=== PATIENT | male | born 1965 | race African-American/Black ===

== ENCOUNTER 2017-03-08 07:20 | Inpatient (IN) | payer MEDICARE, OTHER ==
[2017-03-08] VITALS (15 sets, daily range): BP systolic 98–157; BP diastolic 71–103
[~2017-03-08] VITALS: Ht 177.8 cm; Wt 83.9 kg
[~2017-03-08 07:20] MED LIST: AMBIEN10 MG ORAL; BRIMONIDINE TART5 ML BOTH EYES; CATAPRES0.1 MG ORAL; DIPHENHYDRAMINE25 M1 ORAL; FOLIC ACID1 MG ORAL; GERI-LANTA LIQ355 ML PO; KLONOPIN1 MG ORAL; LATANOPROST2.5 ML BOTH EYES; NEPHROVITE1 TAB ORAL; NORCO 5-325 TA1 EAC1 ORAL; PROPRANOLOL HCL20 MG ORAL; PROTONIX20 MG ORAL; RENAGEL800 MG ORAL; RISPERDAL1 MG PO; TRAZODONE HCL50 MG ORAL; TYLENOL EXTRA500 MG ORAL; VITAMIN D31000 UNI1 PO
[2017-03-08] MEDS ORDERED: ABILIFY2 MG ORAL (07:28)
[2017-03-08] MEDS ORDERED: Lidocaine 1% 10mg/ml/Epi 0.005mg/ml 30ml vial INJ ONE ×2 (07:28→08:45)
[2017-03-08] MEDS ORDERED: CATAPRES0.1 MG ORAL (07:28)
[2017-03-08] MEDS ORDERED: BENZTROPINE MESY2 MG ORAL (07:28)
[2017-03-08] MEDS ORDERED: Surgicel 4in x 8in TOPIC ONE ×3 (07:29→08:15)
[2017-03-08 08:19] LABS: BASOPHILS % (AUTO) 1.3 % (0.0-2.0); EOSINOPHILS % (AUTO) 2.5 % (0.0-3.0); LYMPHOCYTES % (AUTO) 33.1 % (20.0-45.0); MEAN CORPUSCULAR HEMOGLOBIN 30.9 PG (27.0-31.0); MEAN CORPUSCULAR HGB CONC 32.6 G/DL (32.0-36.0); MEAN CORPUSCULAR VOLUME 95 FL (80-99); MEAN PLATELET VOLUME 6.6 FL (6.5-10.1); MONOCYTES % (AUTO) 9.9 % (1.0-10.0); NEUTROPHILS % (AUTO) 53.3 % (45.0-75.0); PLATELET COUNT 186 K/UL (150-450); RED BLOOD COUNT 4.56 M/UL (4.70-6.10); RED CELL DISTRIBUTION WIDTH 15.7 % (11.6-14.8); WHITE BLOOD COUNT 6.8 K/UL (4.8-10.8)
[2017-03-08 08:28] LABS: INR 1.1 (0.9-1.1); PROTHROMBIN TIME 10.8 SEC (9.30-11.50)
[2017-03-08] MEDS ORDERED: Tranexamic Acid 1,000 MG in NS 110 ML IVPB ONE (08:30)
[2017-03-08 08:32] LABS: CALCIUM 9.8 mg/dL (8.6-10.2); CREATININE 8.9 mg/dL (0.7-1.2); GLOMERULAR FILTRATION RATE 7.6 mL/min (>60); TOTAL PROTEIN 8.6 g/dL (6.6-8.7)
--- NOTE | 2017-03-08 09:08 | Emergency Room Report ---
History of Present Illness General Chief Complaint: General Complaint Source: Patient, EMS Present Illness HPI 51YOM BIBEMS from SNF with bleeding right sided AV fistula SNF says 50cc blood loss. Patient denies chest pain, SOB, dizziness. Feels well otherwise. Completed HD yesterday Bandage changed today, had bleeding when changed, spurting arterial bleed Pressure dressing applied Not on ASA, other AC Per EMR, been here 4x previously but not active bleeding noted at time. Allergies: Coded Allergies: MEPERIDINE (Verified Adverse Reaction, Intermediate, 03/03/14) Patient History Past Medical History: HTN, renal disease Past Surgical History: other - AV fistula Pertinent Family History: none Social History: Denies: smoking, alcohol use, drug use Immunizations: UTD Reviewed Nursing Documentation: PMH: Agreed, PSxH: Agreed Nursing Documentation-PMH Hx Hypertension: Yes Hx Pacemaker: No - Glaucoma Hx COPD: Yes Hx Gastrointestinal Problems: Yes - GERD Hx Dialysis: Yes - MWF, FISTULA ON RIGHT ARM Review of Systems All Other Systems: negative except mentioned in HPI Physical Exam Vital Signs Date Time Temp Pulse Resp B/P (MAP) Pulse Ox O2 Delivery O2 Flow Rate FiO2 03/08/17 07:12 90 18 104/68 99 Room Air Procedures Critical Care Time Critical Care Time CC time 45 minutes Right AV fistula hemorrhage CC time includes Cx with vascular surgeon, direct pressure application, multiple reassessments, review of labs, paperwork from [facility], dosing TXA Medical Decision Making Diagnostic Impression: Primary Impression: Hemorrhage of arteriovenous fistula Qualified Codes: T82.838A - Hemorrhage due to vascular prosthetic devices, implants and grafts, initial encounter ER Course VSS. Afebrile. Asymptomatic Arterial bleed difficult to control with just pressure Required local lido with epi for analgesia, surgicel x3 with direct pressure and topical TXA Continued bleeding Consulted patient's vascular surgeon Dr palacios who recommended wrap with AMELIA wrap from elbow-forearm, elevation NPO for surgery Dr Davidson also asked for 2U PRBC to be made available for possible transfusion CBC: normal H&H. Normal platelets and INR. Endorsed to Dr Kuhn for Dr Hauser for ICU admission at 1030am EKG Diagnostic Results Rate: normal Rhythm: NSR ST Segments: no acute changes ASA given to the pt in ED: No Rhythm Strip Diag. Results EP Interpretation: yes Rate: 77 Rhythm: NSR, no PVC's, no ectopy Chest X-Ray Diagnostic Results Chest X-Ray Diagnostic Results : Chest X-Ray Ordered: Yes # of Views/Limited/Complete: 1 View Indication: Other - Pre-op EP Interpretation: Yes Interpretation: no consolidation, no effusion, no pneumothorax, no acute cardiopulmonary disease Impression: No acute disease Interpreting ER Provider: Dr Omari Agarwal mD Last Vital Signs Date Time Temp Pulse Resp B/P (MAP) Pulse Ox O2 Delivery O2 Flow Rate FiO2 03/08/17 08:30 71 19 102/71 100 Room Air Status: improved Disposition: ADMITTED INPATIENT Condition: Critical Referrals: YENIFER VAZQUEZ (PCP) OMARI AGARWAL M.D. Mar 08, 2017 09:08
[2017-03-08] MEDS ORDERED: Isovue-M 300 15ml INJ ONE (10:59)
[2017-03-08] MEDS ORDERED: Thrombin 5000 units TOPIC ONE (10:59)
[2017-03-08] MEDS ORDERED: Lidocaine 1% Plain 30 ml INJ ONE (10:59)
[2017-03-08] MEDS ORDERED: Bupivacaine 0.25% Inj 30ml INJ ONE (11:00)
[2017-03-08] MEDS ORDERED: Bacitracin 50000 Units Vial ONE (11:00)
--- NOTE | 2017-03-08 11:03 | Diagnostic Imaging Report ---
Indication: Cough Comparison: None A single view chest radiograph was obtained. Findings: Cardiomediastinal appearance is within normal limits for age. Pulmonary vascularity is appropriate. The diaphragmatic contour is smooth and costophrenic angles are sharp. No pleural effusions are identified. The bones are unremarkable. Impression: No acute findings
[2017-03-08] MEDS ORDERED: NS 275ml ONE (12:00)
[2017-03-08] MEDS ORDERED: Dexamethasone 4mg/ml vial ONE (12:00)
[2017-03-08] MEDS ORDERED: LR 1000ml ONE (12:00)
[2017-03-08] MEDS ORDERED: Sterile Water Irrig 1000ml IRRIG ONE (12:00)
[2017-03-08] MEDS ORDERED: Alfentanil 2ml Inj ONE (12:00)
--- NOTE | 2017-03-08 12:00 | Pre-Procedure Note/Attestation ---
Pre-Procedure Note/Attestation Complete Prior to Procedure Planned Procedure: right Procedure Narrative: Exploration of right arm av shunt control of bleeding possible ligation revision resection and dialysis catheter placement Indications for Procedure Pre-Operative Diagnosis: Bleeding av shunt ESRD Attestation I attest that I discussed the nature of the procedure; its benefits; risks and complications; and alternatives (and the risks and benefits of such alternatives ), prior to the procedure, with the patient (or the patient's legal fulfillment representative). I attest that, if there was a reasonable possibility of needing a blood transfusion, the patient (or the patient's legal fulfillment representative) was given the [place] Department of Health Services standardized written summary, pursuant to the [place] Blood Safety Act ([place] Health and Safety Code # 1645, as amended). I attest that I re-evaluated the patient just prior to the surgery and that there has been no change in the patient's H&P, except as documented below: GORDY CROOKS Mar 08, 2017 12:00
[2017-03-08] MEDS ORDERED: LR 1000ml 1,000 ML IVLG SCH (12:09)
--- NOTE | 2017-03-08 12:09 | Anethesia Preoperative Eval ---
Anesthesia Pre-op PMH/ROS General Date of Evaluation: Mar 08, 2017 Anesthesiologist: Alcon ASA Score: ASA 3 - Emergency Mallampati Score Class I : Soft palate, uvula, fauces, pillars visible Class II: Soft palate, uvula, fauces visible Class III: Soft palate, base of uvula visible Class IV: Only hard plate visible Mallampati Classification: Class II Surgeon: Elmer Diagnosis: Hemorrage AV Fistula R Arm Surgical Procedure: Revision AV Fistula Anesthesia History: none Family History: no anesthesia problems Allergies: Coded Allergies: MEPERIDINE (Verified Adverse Reaction, Intermediate, 03/03/14) Medications: see eMAR Past Medical History Cardiovascular: Reports: HTN Gastrointestinal/Genitourinary: Reports: ESRD - Dialysis Hematology/Immune: Reports: anemia PSxH Narrative: AV Fistula Anesthesia Pre-op Phys. Exam Physician Exam Last Vital Signs Date Time Temp Pulse Resp B/P (MAP) Pulse Ox O2 Delivery O2 Flow Rate FiO2 03/08/17 11:35 75 16 113/80 100 Room Air 03/08/17 10:30 98.1 Constitutional: NAD Neurologic: CN 2-12 intact Cardiovascular: RRR Respiratory: CTA Gastrointestinal: S/NT/ND Airway Exam Mallampati Score: Class II MO: limited ROM: limited Teeth: missing, intact Anesthesia Pre-op A/P Labs Hematology Test 03/08/17 08:00 White Blood Count 6.8 K/UL (4.8-10.8) Red Blood Count 4.56 M/UL (4.70-6.10) L Hemoglobin 14.1 G/DL (14.2-18.0) L Hematocrit 43.2 % (42.0-52.0) Mean Corpuscular Volume 95 FL (80-99) Mean Corpuscular Hemoglobin 30.9 PG (27.0-31.0) Mean Corpuscular Hemoglobin Concent 32.6 G/DL (32.0-36.0) Red Cell Distribution Width 15.7 % (11.6-14.8) H Platelet Count 186 K/UL (150-450) Mean Platelet Volume 6.6 FL (6.5-10.1) Neutrophils (%) (Auto) 53.3 % (45.0-75.0) Lymphocytes (%) (Auto) 33.1 % (20.0-45.0) Monocytes (%) (Auto) 9.9 % (1.0-10.0) Eosinophils (%) (Auto) 2.5 % (0.0-3.0) Basophils (%) (Auto) 1.3 % (0.0-2.0) Coagulation Test 03/08/17 08:00 Prothrombin Time 10.8 SEC (9.30-11.50) Prothromb Time International Ratio 1.1 (0.9-1.1) Activated Partial Thromboplast Time 28 SEC (23-33) Chemistry Test 03/08/17 08:00 Sodium Level 134 mEQ/L (135-145) L Potassium Level 5.0 mEQ/L (3.4-4.9) H Chloride Level 93 mEQ/L (98-107) L Carbon Dioxide Level 27 mEQ/L (20-30) Anion Gap 14 (5-15) Blood Urea Nitrogen 47 mg/dL (7-23) H Creatinine 8.9 mg/dL (0.7-1.2) H Estimat Glomerular Filtration Rate 7.6 mL/min (>60) Glucose Level 97 mg/dL (74-106) Calcium Level 9.8 mg/dL (8.6-10.2) Total Bilirubin 0.5 mg/dL (0.0-1.2) Aspartate Amino Transf (AST/SGOT) 18 U/L (5-40) Alanine Aminotransferase (ALT/SGPT) 15 U/L (3-41) Alkaline Phosphatase 244 U/L (40-129) H Total Protein 8.6 g/dL (6.6-8.7) Albumin 4.5 g/dL (3.5-5.2) Globulin 4.1 g/dL Albumin/Globulin Ratio 1.0 (1.0-2.7) Risk Assessment & Plan Assessment: ASA 3E Plan: GA, BIS Status Change Before Surgery: No Pre-Antibiotics Dru Gram Ancef IV Given Within 1 Hr of Incision: Yes Alek Rondon MD Mar 08, 2017 12:09
--- NOTE | 2017-03-08 12:11 | Immediate Post-Op Evaluation ---
Immediate Post-Op Evalulation Immediate Post-Op Evalulation Procedure: Revision R AV Fistula Date of Evaluation: Mar 08, 2017 Time of Evaluation: 14:52 IV Fluids: 400 NS Blood Products: 0 Estimated Blood Loss: 100 Urinary Output: 0 Blood Pressure Systolic: 117 Blood Pressure Diastolic: 81 Pulse Rate: 71 Respiratory Rate: 16 O2 Sat by Pulse Oximetry: 100 Temperature (Fahrenheit): 97.5 Pain Score (1-10): 2 Nausea: No Vomiting: No Complications 0 Patient Status: awake, reacts, patent, extubated, none Hydration Status: adequate Dru Gram Ancef IV Given Within 1 Hr of Incision: Yes Time Given: 12:16 Alek Rondon MD Mar 08, 2017 12:11
--- NOTE | 2017-03-08 12:13 | 48 Hour Post Anesthesia Eval ---
Post Anesthesia Evaluation Procedure: Revision R AV Fistula Date of Evaluation: Mar 08, 2017 Time of Evaluation: 17:14 Blood Pressure Systolic: 127 0: 81 Pulse Rate: 74 Respiratory Rate: 18 Temperature (Fahrenheit): 98.2 O2 Sat by Pulse Oximetry: 100 Airway: patent Nausea: No Vomiting: No Pain Intensity: 3 Hydration Status: adequate Cardiopulmonary Status: Stable Mental Status/LOC: patient returned to baseline Follow-up Care/Observations: 0 Post-Anesthesia Complications: 0 Follow-up care needed: N/A Alek Rondon MD Mar 08, 2017 12:13
[2017-03-08] MEDS ORDERED: Norco 5mg/325mg tab ORAL PRN ×2 (12:15→15:00)
[2017-03-08] MEDS ORDERED: Ketorolac 60mg Inj IV PRN (12:15)
[2017-03-08] MEDS ORDERED: Norco 7.5mg/325mg tab ORAL PRN (12:15)
[2017-03-08] MEDS ORDERED: Meperidine 25mg/0.5ml Inj (FOR RIGORS ONLY) IV PRN (12:15)
[2017-03-08] MEDS ORDERED: fentaNYL 100 mcg/2 mL IV PRN (12:15)
[2017-03-08] MEDS ORDERED: LORazepam Inj 2mg/ml 1ml IV PRN (12:15)
[2017-03-08] MEDS ORDERED: Hydromorphone 0.5mg/0.5ml inj IVP PRN (12:15)
[2017-03-08] MEDS ORDERED: Midazolam 2mg/2ml Inj IVP PRN (12:15)
[2017-03-08] MEDS ORDERED: DiphenhydrAMINE 50mg/ml Inj IVP PRN (12:15)
[2017-03-08] MEDS ORDERED: Metoclopramide 10mg/2ml Inj IVP PRN (12:15)
[2017-03-08] MEDS ORDERED: oxyCODONE HCL/Acetaminophen 5/325mg ORAL PRN (12:15)
[2017-03-08] MEDS ORDERED: Atropine Inj 1mg/10ml Syr IV PRN (12:15)
[2017-03-08] MEDS ORDERED: Ketorolac 30mg Inj IV PRN (12:15)
[2017-03-08] MEDS ORDERED: Bacitracin Oint 15gm Tube TOPIC ONE (13:05)
--- NOTE | 2017-03-08 14:41 | Operative Note - PDOC ---
Operative Note Operative Note Pre-op Diagnosis: Bleeding av shunt ESRD Procedure: Exploration of right arm av shunt and ligation with resection of ruptured bleeding av shunt pseudoaneurysm and left IJ chest permcath Post-op Diagnosis: same as pre-op Surgeon: Gordy Crooks Anesthesiologist: Alek Rondon Anesthesia: general Specimen: yes - Right arm av shunt bleeding aneurysm Complications: none Condition: stable Fluids: 400 Estimated Blood Loss: minimal - 100cc Drains: none Implant(s) used?: Yes - Left chest IJ permcath GORDY CROOKS Mar 08, 2017 14:41
[2017-03-08 15:16] LABS: MEAN CORPUSCULAR HEMOGLOBIN 32.7 PG (27.0-31.0); MEAN CORPUSCULAR HGB CONC 34.8 G/DL (32.0-36.0); MEAN CORPUSCULAR VOLUME 94 FL (80-99); MEAN PLATELET VOLUME 8.2 FL (6.5-10.1); PLATELET COUNT 133 K/UL (150-450); RED BLOOD COUNT 3.97 M/UL (4.70-6.10); RED CELL DISTRIBUTION WIDTH 16.1 % (11.6-14.8); WHITE BLOOD COUNT 6.5 K/UL (4.8-10.8)
[2017-03-08 15:17] LABS: BASOPHILS % (AUTO) 0.8 % (0.0-2.0); EOSINOPHILS % (AUTO) 0.6 % (0.0-3.0); LYMPHOCYTES % (AUTO) 9.9 % (20.0-45.0); MONOCYTES % (AUTO) 2.9 % (1.0-10.0); NEUTROPHILS % (AUTO) 85.9 % (45.0-75.0)
[2017-03-08 15:29] LABS: CALCIUM 8.9 mg/dL (8.6-10.2); CREATININE 9.1 mg/dL (0.7-1.2); GLOMERULAR FILTRATION RATE 7.5 mL/min (>60)
[2017-03-08] MEDS ORDERED: Sodium Polystyrene Sulfonate 15gm Powder ORAL ONE (17:00)
[2017-03-08] MEDS ORDERED: ceFAZolin sod 1 GM in NS 55 ML IVPB ONE (18:00)
[2017-03-09] VITALS: BP 138/80
[2017-03-09] MEDS ORDERED: DiphenhydrAMINE 50mg/ml Inj IVP ONE (02:00)
[2017-03-09 04:00] VITALS: BP 143/77
[2017-03-09 05:04] LABS: BASOPHILS % (AUTO) 0.7 % (0.0-2.0); EOSINOPHILS % (AUTO) 0.4 % (0.0-3.0); LYMPHOCYTES % (AUTO) 10.9 % (20.0-45.0); MEAN CORPUSCULAR HEMOGLOBIN 31.6 PG (27.0-31.0); MEAN CORPUSCULAR HGB CONC 33.4 G/DL (32.0-36.0); MEAN CORPUSCULAR VOLUME 95 FL (80-99); MEAN PLATELET VOLUME 7.3 FL (6.5-10.1); PLATELET COUNT 159 K/UL (150-450); RED BLOOD COUNT 3.85 M/UL (4.70-6.10); RED CELL DISTRIBUTION WIDTH 15.8 % (11.6-14.8); WHITE BLOOD COUNT 7.6 K/UL (4.8-10.8)
[2017-03-09 05:44] LABS: CREATININE 10.9 mg/dL (0.7-1.2); GLOMERULAR FILTRATION RATE 6.1 mL/min (>60); POTASSIUM 4.4 mEQ/L (3.4-4.9)
[2017-03-09 08:00] VITALS: BP 121/86
[2017-03-09] MEDS ORDERED: Propranolol 10mg tab ORAL SCH (09:00)
[2017-03-09] MEDS ORDERED: Vitamin D 400 INTLU TAB ORAL SCH (09:00)
[2017-03-09] MEDS ORDERED: Sensipar 30mg Tab ORAL SCH (09:00)
[2017-03-09] MEDS ORDERED: Acetaminophen 500mg (ES) tab ORAL PRN (09:00)
[2017-03-09] MEDS ORDERED: Nephrovite tab (Rena-Vite) ORAL SCH (09:00)
[2017-03-09] MEDS ORDERED: Brimonidine 0.2% Opth Sol BOTH EYES SCH (09:30)
--- NOTE | 2017-03-09 09:30 | History and Physical Report ---
DATE OF ADMISSION: 03/08/2017 CHIEF COMPLAINT: Bleeding from the right AV fistula. HISTORY OF PRESENT ILLNESS: This is a 51-year-old male correction man with a history of ESRD on hemodialysis Friday, Friday, and Friday at [facility], and hypertension. The patient was sent from the correction because of the bleeding from the AV fistula. The patient got dialysis yesterday and since last night the patient has been bleeding from the AV fistula site after removing the dressing, so sent the patient to the ER. In the ER, the patient still had bleeding. The patient did get pressure dressing and with the medications. When I saw the patient in the ER, the patient had spotting of blood from the AV fistula and I discussed with the vascular surgeon who recommends to apply Mik bandage and will see the patient in an hour. The patient denies any headache, dizziness, lightheadedness, chest pain, shortness of breath, nausea, vomiting, or diarrhea. PAST MEDICAL HISTORY: 1. ESRD on hemodialysis Friday, Friday, and Friday at [facility]. 2. Hypertension. PAST SURGICAL HISTORY: Right AV shunt creation. ALLERGIES: Meperidine. MEDICATIONS: [facility] medications reviewed. SOCIAL HISTORY: He resides in a correction. No current smoking, alcohol, and drug use. REVIEW OF SYSTEMS: A 14-point was negative except as in the history of present illness. PHYSICAL EXAMINATION: VITAL SIGNS: Blood pressure 144/95, heart rate 71, respiratory rate 16, and temperature 97.8. Oxygen saturation 100% on room air. GENERAL: The patient is no acute distress. Alert, awake, and oriented x3. HEENT: Atraumatic and normocephalic. NECK: Supple. Trachea is in the midline. LUNGS: Clear to auscultate bilaterally. HEART: S1 and S2, regular rate and rhythm. No murmur. ABDOMEN: Soft and nontender. Bowel sounds are present. EXTREMITIES: No edema. Right AV fistula with spotting of the blood. LABORATORY AND DIAGNOSTIC DATA: White count 6.5, hemoglobin 14.1, hematocrit 43.2, and platelet count 186,000. Chemistry - sodium 134, potassium 5.0, chloride 93, bicarb 27, BUN 47, and creatinine 8.9. Alkaline phosphatase is 144. INR is 1.1. Chest x-ray is normal. ASSESSMENT: 1. Bleeding from the right arteriovenous fistula, most likely aneurysm rupture. 2. End-stage renal disease, on hemodialysis Friday, Friday, and Friday. 3. Hypertension. 4. Mild hyperkalemia. PLAN: 1. Apply Mik bandage. 2. Follow up with Vascular, possible need to take the patient to OR. 3. Monitor H and H and transfuse as needed and monitor vitals. Discussed with the ER attending and vascular. Taylor Jad Kuhn M.D. DR: PRAKASH JOB#: [id number] CC:
--- NOTE | 2017-03-09 11:23 | Diagnostic Imaging Report ---
Indication: Dyspnea Comparison: 03/08/17 A single view chest radiograph was obtained. Findings: Left permacath is in place. The tip is in the right atrium in good position. There is slight kinking at the entry site in the left jugular vein. The lungs are clear. The heart is enlarged. Impression: Permacath placement. The catheter is slightly kinked at the left jugular entry point.
--- NOTE | 2017-03-09 11:33 | Diagnostic Imaging Report ---
Indication: Permacath placement Comparison: None Findings: Single frontal portable view of the chest demonstrating a left jugular permacath appears to be in good position. Impression: Intraoperative imaging
[2017-03-09 12:00] VITALS: BP 131/87
--- NOTE | 2017-03-09 13:07 | Nephrology Progress Note ---
Assessment/Plan Plan 1)Bleeding from the right arteriovenous fistula, s/p resection and ligation of pseudoaneurysm, s/p L chest permacath 2) Hyperkalemia--resolved after kayexalate 3) End-stage renal disease, on hemodialysis Friday, Friday, and Friday. 4). Hypertension. Plan DC to SNF after HD. f/u with vascular for new AV shunt Subjective Subjective got R AV shunt resection and ligation of rupture pseudoaneurysm. pt got L chest permacath. gettign HD Objective Objective Last 24 Hour Vital Signs Date Time Temp Pulse Resp B/P (MAP) Pulse Ox O2 Delivery O2 Flow Rate FiO2 03/09/17 12:00 98.2 70 18 131/87 100 Nasal Cannula 03/09/17 09:16 83 121/86 03/09/17 08:00 88 03/09/17 08:00 97.0 83 18 121/86 98 Nasal Cannula 2.0 03/09/17 04:00 87 03/09/17 04:00 98.0 88 20 143/77 99 Mechanical Ventilator 35 03/09/17 04:00 98.0 88 20 99 Nasal Cannula 2.0 03/09/17 00:00 97.7 83 20 138/80 100 Nasal Cannula 2.0 03/09/17 00:00 80 03/08/17 21:39 71 144/103 03/08/17 20:03 71 144/103 03/08/17 20:00 81 03/08/17 20:00 97.1 80 20 129/87 100 Nasal Cannula 3.0 03/08/17 16:13 97.8 71 15 144/103 100 Nasal Cannula 3.0 03/08/17 15:40 98.0 66 15 152/97 100 Nasal Cannula 3.0 03/08/17 15:38 98.0 03/08/17 15:30 67 21 157/98 100 Nasal Cannula 3.0 03/08/17 15:15 70 21 150/85 100 Nasal Cannula 3.0 03/08/17 15:08 73 19 147/95 100 Simple Mask 8.0 03/08/17 14:50 78 17 115/81 100 Simple Mask 8.0 03/08/17 14:45 77 16 117/80 100 Simple Mask 8.0 03/08/17 14:42 74 18 100 03/08/17 14:41 97.5 85 18 117/81 97 Simple Mask 8.0 03/08/17 14:41 71 16 100 Laboratory Tests 03/08/17 15:10: White Blood Count 6.5, Red Blood Count 3.97L, Hemoglobin 13.0L, Hematocrit 37.3L , Mean Corpuscular Volume 94, Mean Corpuscular Hemoglobin 32.7H, Mean Corpuscular Hemoglobin Concent 34.8, Red Cell Distribution Width 16.1H, Platelet Count 133L, Mean Platelet Volume 8.2, Neutrophils (%) (Auto) 85.9H, Lymphocytes (%) (Auto) 9.9L, Monocytes (%) (Auto) 2.9, Eosinophils (%) (Auto) 0.6, Basophils (%) (Auto) 0.8, Sodium Level 134L, Potassium Level 6.0*H, Chloride Level 96L, Carbon Dioxide Level 23, Anion Gap 15, Blood Urea Nitrogen 50H, Creatinine 9.1H, Estimat Glomerular Filtration Rate 7.5, Glucose Level 96, Calcium Level 8.9 03/08/17 20:05: Potassium Level 4.7 03/09/17 03:35: White Blood Count 7.6, Red Blood Count 3.85L, Hemoglobin 12.2L, Hematocrit 36.4L , Mean Corpuscular Volume 95, Mean Corpuscular Hemoglobin 31.6H, Mean Corpuscular Hemoglobin Concent 33.4, Red Cell Distribution Width 15.8H, Platelet Count 159, Mean Platelet Volume 7.3, Neutrophils (%) (Auto) 80.0H, Lymphocytes (%) (Auto) 10.9L, Monocytes (%) (Auto) 8.0, Eosinophils (%) (Auto) 0.4, Basophils (%) (Auto) 0.7, Sodium Level 139, Potassium Level 4.4, Chloride Level 96L, Carbon Dioxide Level 24, Anion Gap 19H, Blood Urea Nitrogen 68H, Creatinine 10.9H, Estimat Glomerular Filtration Rate 6.1, Glucose Level 123H, Calcium Level 9.0 Height (Feet): 5 Height (Inches): 10.00 Weight (Pounds): 185 Objective NAD, AAox3 CTA b/l,no rales, no rhonchi S1,s2,RRR,no M/R/g soft, non tender, BS+ no edema, BENY shunt resection with dressing, L chest permacath+ CARTERSARA Mar 09, 2017 13:07
[2017-03-09 16:00] VITALS: BP 117/76
[2017-03-09] MEDS ORDERED: NS 275ml ONE (16:50)
[2017-03-09] MEDS ORDERED: Tubing IV Secondary IV ONE (16:50)
--- NOTE | 2017-03-10 07:15 | Operative Note - Dictated ---
DATE OF OPERATION: 03/08/2017 SURGEON: Efren Castillo M.D. ANESTHESIOLOGIST: Alek Rondon M.D. PREOPERATIVE DIAGNOSES: 1. Ruptured bleeding, right arm AV shunt, pseudoaneurysm, and blister. 2. End-stage renal disease, requiring access for hemodialysis. 3. History of hypertension. POSTOPERATIVE DIAGNOSES: 1. Ruptured bleeding, right arm AV shunt, pseudoaneurysm, and blister. 2. End-stage renal disease, requiring access for hemodialysis. 3. History of hypertension. PROCEDURE PERFORMED: 1. Exploration of ruptured right arm AV shunt bleeding aneurysm with ligation of the right upper arm AV shunt. 2. Ligation of right cephalic vein AV fistula and ligation of right proximal axillary vein. 3. Ligation of right cephalic vein AV fistula and resection of two large AV shunt aneurysm and ruptured blistered wound aneurysm. 4. Incision and debridement of right upper arm AV shunt wound down to the muscle. 5. Left internal jugular vein tunneled hemodialysis Perm-catheter (14.5 cm x 27 cm [employer]) with ultrasound sonography with intraoperative fluoroscopy with interpretation and supervision of the above. ANESTHESIA: Local sedation. ANESTHESIOLOGIST: Alek Rondon M.D. COMPLICATIONS: None. TOTAL FLUOROSCOPY TIME: 1 minute and 6 seconds. FINDINGS: 1. Left internal jugular vein tunneled Perm-catheter with the tip in the aortofemoral junction with good curvature. 2. There was a large aneurysmal change of the right cephalic vein AV shunt, lower segment of the AV shunt was ruptured with a large whole defect. These completely were excised. Debridement was performed down to the muscle. The cephalic vein were suture ligated. There was no evidence of proximal resection. The patient had a strong good palpable radial pulse. The patient tolerated the procedure very well and will be dialyzed through the catheter, will be scheduled for a new AV shunt in the right arm in about five weeks' time. INDICATION FOR THE PROCEDURE: This is a 51-year-old male who presented for evaluation and procedure. Risks and benefits were discussed, and consent was obtained. BRIEF HISTORY AND PROCEDURE: The patient was brought to the procedure room. After a dose of antibiotics and sedation by the anesthesiologist, right arm was prepped and draped in usual sterile manner. Chest and neck were prepped and draped in usual sterile manner. There was active bleeding from the ruptured right atrial aneurysm. External pressure proximal cephalic vein AV fistula. This was circumferentially controlled and ligated suture x3. A separate incision was made in the outflow cephalic vein shunt from the shoulder. A separate incision was made in the right cephalic vein fistula, which is also circumferentially controlled and ligated with some suture. These two wounds were irrigated with antibiotic irrigation and closed using 2-0 Vicryl suture and skin stapler. Attention was then turned to the two large aneurysms with ruptured hole, which were excised in an elliptical incision with skin and AV shunt aneurysm. Both of them were excised unblock in an elliptical fashion. Incision and debridement was carried to the right upper arm down to the muscle. Wounds were irrigated with antibiotic irrigation. Hemostasis was achieved. Wounds were reapproximated and closed with interrupted 2-0 and 3-0 Vicryl suture. Skin was closed using skin stapler and reapproximated using interrupted 2-0 nylon suture in a vertical mattress. Sterile dressing applied. Attention was moved to left internal jugular vein. Under sterile condition, left internal jugular vein was . sequential ____ was carried out. sheath was placed. HemoStar Bard and clinically left leg. to the sheath and sheath was peeled away with good curvature and good venous flush. Perm-catheter was flushed with heparinized saline solution, secured using 2-0 nylon suture. The left neck wound was closed with 4-0 Monocryl and . Sterile dressing applied. The patient tolerated the procedure very well. Efren Castillo M.D. DR: Andrés JOB#: [id number] CC:
--- NOTE | 2017-03-10 08:46 | Consultation ---
DATE OF CONSULTATION: 03/08/2017 "NOTE: POOR AUDIO QUALITY" VASCULAR SURGERY CONSULTATION SURGEON: Efren Castillo M.D. REFERRING PHYSICIAN: Taylor Kuhn M.D. REASON FOR CONSULTATION: Active bleeding, right arm AV shunt. 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 The patient has a prior history of blisters, recurrent issues. The patient now presented with ruptured blister and arterial bleeding in the emergency room. Vascular Surgery is again consulted for evaluation. PAST MEDICAL HISTORY: As above, history of AV shunt aneurysm, hypertension, . SOCIAL HISTORY: He is . longterm resident. No history of smoking, drugs, or alcohol abuse. FAMILY HISTORY: Unremarkable. REVIEW OF SYSTEMS: Cardiovascular: No history of chest pain or palpitations. Pulmonary: No cough. No hemoptysis. Gastrointestinal: No history of abdominal pain, constipation, or diarrhea. Genitourinary: No urinary symptoms. Neurological: No history of stroke or seizures. PHYSICAL EXAMINATION: GENERAL: The patient is awake . VITAL SIGNS: Heart rate is 80, blood pressure 140/70, and respirations 16. EXTREMITIES: Right arm AV shunt ruptured pseudoaneurysm with active bleeding, which is controlled by Mik wrap and pressure dressing. LABORATORY DATA: BUN 47, and creatinine 8.9. Hemoglobin is 14.1, WBC 6.5, and platelet count 186,000. IMPRESSION: 1. Ruptured right arm arteriovenous shunt pseudoaneurysm and bleeding. 2. End-stage renal failure, requiring access. PLAN: The patient will require and dissection and dialysis catheter . Efren Castillo M.D. DR: Andrés JOB#: [id number] CC:
--- NOTE | 2017-03-10 19:45 | Cardiology Report ---
APPROVED REPORT EKG Measurement Heart [id number] Normal sinus rhythm Septal infarct, age undetermined T wave abnormality, consider inferolateral ischemia Abnormal ECG
--- NOTE | 2017-03-11 10:18 | Discharge Summary ---
Discharge Summary Hospital Course Date of Admission Mar 08, 2017 at 16:41 Date of Discharge Mar 09, 2017 at 16:51 Admitting Diagnosis bleeding AV FISTULA HPI Venkat Kern Jr is a 51 year old male who was admitted on Mar 08, 2017 at 16: 41 for Av Fistula Hospital Course DC SUMMARY #[id number] Discharge Medications Continued Medications: Acetaminophen* (Tylenol Extra Strength*) 500 Mg Tablet 500 MG ORAL Q6H PRN for Mild Pain/Temp > 100.5, TAB 0 Refills Aripiprazole* (Abilify*) 2 Mg Tablet 1 MG ORAL DAILY, TAB Benztropine Mesylate* (Benztropine Mesylate*) 2 Mg Tablet 2 MG ORAL BEDTIME, TAB Brimonidine Tartrate* (Alphagan*) 5 Ml Drops 1 DROP BOTH EYES BID, ML Cholecalciferol (Vitamin D3) (Vitamin D3) 1,000 Unit Capsule 1000 UNIT PO DAILY, CAP Clonazepam* (Klonopin*) 1 Mg Tablet 1 MG ORAL EVERY 8 HOURS, #15 TAB 0 Refills Clonidine Hcl* (Catapres*) 0.1 Mg Tablet 0.1 MG ORAL EVERY 6 HOURS PRN for For High Blood Pressure, TAB Folic Acid* (Folic Acid*) 1 Mg Tablet 1 MG ORAL DAILY, TAB Hydrocodone Bit/Acetaminophen 5-325* ([place] 5-325 Tablet*) 1 Each Tablet 1 TAB ORAL EVERY 6 HOURS PRN for Pain Scale (3-5), TAB Pantoprazole Sodium (Protonix) 20 Mg Tablet.dr 20 MG ORAL DAILY, TAB Sevelamer Hcl (Renagel) 800 Mg Tablet 3200 MG ORAL THREE TIMES A DAY, #90 TAB 0 Refills Vitamin B Cmplx/Vit C/Folic AC (Nephro-Ryan Tablet) 1 Tab Tab 1 TAB ORAL DAILY, #30 TAB 0 Refills Discharge Condition Upon Discharge: stable Discharge Disposition Patient was discharged to SNF/Subacute Facility(03) Discharge Diagnoses: Discharge Instructions Discharge Instructions Special Instructions I have been assigned to complete a D/C Summary on this account. I was not involved in the patient management Gosia Jerome NP ([place]) Mar 11, 2017 10:18
--- NOTE | 2017-03-12 06:00 | Discharge Summary 2 SIG ---
DATE OF ADMISSION: 03/08/2017 DATE OF DISCHARGE: 03/09/2017 REASON FOR ADMISSION: 51-year-old male with history of end-stage renal disease, on hemodialysis and hypertension, presented from detention facility with bleeding from right-sided AV fistula. In the detention facility, nursing staff reports that the patient lost 50 mL of blood. The patient denied chest pain, shortness of breath, or dizziness. The patient had hemodialysis the day prior to coming to emergency room. The patient applied pressure dressing. While changing pressure dressing, he spotted some arterial bleeding. Pressure dressing applied. The patient is not on any anticoagulation, not taking any aspirin. Upon evaluation in the emergency department, hemoglobin and hematocrit were stable. Potassium 5.0. BUN 47 and creatinine 8.9 consistent with end-stage renal disease. Hemoglobin 14.1 and hematocrit 43.2. EKG shows normal sinus rhythm. Chest x-ray revealed no acute cardiopulmonary disease. Blood pressure was stable. The patient was admitted for further management. ADMITTING DIAGNOSES: 1. Hemorrhage of arteriovenous fistula, possible aneurysm rupture. 2. End-stage renal disease, on hemodialysis. 3. Hypertension. 4. Mild hyperkalemia. HOSPITAL COURSE: The patient was admitted. Vascular consult was requested. The patient subsequently undergone on 03/08/2017 exploration of right arm AV shunt and ligation with resection of ruptured bleeding AV shunt pseudoaneurysm and left internal jugular chest PermCath placement. The patient tolerated the procedure well. Potassium was rechecked later and was 6.0. Hyperkalemia was treated. Left jugular PermCath in place. Placement was confirmed by imaging. The patient undergone hemodialysis. Patient tolerated dialysis well. Potassium -4.4. Prior to discharge, hemoglobin and hematocrit were stable. Blood pressure was managed with routine antihypertensive medication regimen and was stable. Patient was discharged afterwards to the detention facility. Due to rapid and unexpected improvement in patient condition, the patient was discharged in one day. DISCHARGE DIAGNOSES: 1. Ruptured bleeding from right arteriovenous shunt pseudoaneurysm. 2. End-stage renal disease,on hemodialysis. 3. Hyperkalemia. 4. Hypertension. 5. Status post exploration of right arm arteriovenous shunt and ligation with resection of ruptured bleeding arteriovenous shunt pseudoaneurysm and placement of left internal jugular chest PermCath. DISCHARGE MEDICATIONS: See medication reconciliation list. DISCHARGE INSTRUCTIONS: The patient was discharged to detention facility. FOLLOWUP: Follow up with medical doctor at the facility. 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 Taylor Kuhn M.D. I have been assigned to dictate discharge summary on this account and I was not involved in the patient's management. Gosia HolmanVa [facility] Healthcare SystemNicolasa NFeltonPFelton DR: VITO JOB#: [id number] CC: CASEY
== END 2017-03-09 16:51 | DRG 252 ==
LOC: EDBD 07:20 → EMR 08:10 → EDBEDREQ 09:44 → EDBEDREQSVC 10:04 → EDBEDREQ 10:04 → SUR 10:13 → EDBEDREQ 16:06 → EDBEDREQSVC 16:06 → 2W 16:31 → SUR 16:31 → 2W 16:41
DX: T82.838A Hemorrhage due to vascular prosthetic devices, implants and grafts, initial encounter (principal); N18.6 End stage renal disease; I12.0 Hypertensive chronic kidney disease with stage 5 chronic kidney disease or end stage renal disease; Y83.8 Other surgical procedures as the cause of abnormal reaction of the patient, or of later complication, without mention of misadventure at the time of the procedure; Z99.2 Dependence on renal dialysis; E87.5 Hyperkalemia; I10 Essential (primary) hypertension; Q27.31 Arteriovenous malformation of vessel of upper limb
CPT/HCPCS: 36415; 71010; 76000; 80048; 80053; 82962; 84132; 85025; 85610; 85730; 86850; 86900; 86901; 86920; 87081; 93005; 94003; 94150; 99291; J2405; J3490